=== PATIENT | female | born 1960 | race Caucasian/White ===

== ENCOUNTER 2018-05-13 09:32 | Emergency (ER) | payer BC ==
[2018-05-13 09:48] VITALS: BP 142/83
--- NOTE | 2018-05-13 10:25 | ED ---
Skin Complaint - HPI Summary HPI Summary: 58 YO wf p/w mild upper lip swelling, and reddish blotchy rash in her extremities, nothing new consumed or worn recently except starting ranitidine about 1 week ago when her PCP switched her from Protonix to ranitidine due to S/ E profile. Denies SOB or dizziness - History of Current Complaint Chief Complaint: UCSkin Time Seen by Provider: 05/13/18 09:38 Stated Complaint: RASH Hx Obtained From: Patient Onset/Duration: Started Days Ago Skin Exposure Onset/Duration: Days Ago Timing: Constant Onset Severity: Moderate Pain Intensity: 0 - Allergy/Home Medications Allergies/Adverse Reactions: Allergies Allergy/AdvReac Type Severity Reaction Status Date / Time meperidine Allergy Vomiting Verified 05/13/18 09:38 opium Allergy Vomiting Uncoded 05/13/18 09:38 opoids Allergy Vomiting Uncoded 04/09/16 12:24 Home Medications: Home Medications raNITIdine HCl [Ranitidine HCl] 150 mg PO BID 05/13/18 [History Confirmed ] PMH/Surg Hx/FS Hx/Imm Hx Endocrine/Hematology History: Denies: Hx Diabetes Cardiovascular History: Denies: Hx Hypertension, Other Cardiovascular Problems/Disorders Respiratory History: Reports: Hx Asthma Denies: Other Respiratory Problems/Disorders GI History: Reports: Hx Gastroesophageal Reflux Disease Denies: Other GI Disorders History: Reports: Hx Kidney Stones - CURRENTLY ON LEFT, Hx Renal Disease - stones,stents,urostomy tube removed Denies: Hx Dialysis Musculoskeletal History: Reports: Hx Arthritis - FEET Denies: Hx Osteoporosis Sensory History: Reports: Hx Contacts or Glasses - CONTACTS Denies: Hx Hearing Aid Opthamlomology History: Reports: Hx Contacts or Glasses - CONTACTS - Surgical History Surgery Procedure, Year, and Place: [place] [facility] [place]. 1990, [facility], [place]- previously documented - ? urostomy for a short time prior to lithotripsy. laser surgery right kidney to remove a stone and stents. Hx Anesthesia Reactions: No Infectious Disease History: No Infectious Disease History: Denies: Traveled Outside the [place] in Last 30 Days - Social History Alcohol Use: Rare Alcohol Amount: 6 PER YEAR Substance Use Type: Reports: None Smoking Status (MU): Never Smoked Tobacco Have You Smoked in the Last Year: No Review of Systems Constitutional: Negative Eyes: Negative ENT: Negative Cardiovascular: Negative Respiratory: Negative Gastrointestinal: Negative Genitourinary: Negative Musculoskeletal: Negative Skin: Other Positive: Rash Neurological: Negative Psychological: Normal All Other Systems Reviewed And Are Negative: Yes Physical Exam - Summary Physical Exam Summary: Vital Signs Reviewed: Yes Appearance: Positive: Well-Appearing Skin: Positive: Warm, diffuse patchy urticaria in flexor surfaces of extremities , B/L upper inner thighs, mild upper lip swelling Head/Face: Positive: Normal Head/Face Inspection Eyes: Positive: EOMI, [place] ENT: Positive: Hearing grossly normal, Pharynx normal, TMs normal Neck: Positive: Supple, No Lymphadenopathy Respiratory/Lung Sounds: Positive: Clear to Auscultation Cardiovascular: Positive: RRR, S1, S2 Abdomen Description: Positive: Nontender, Soft Bowel Sounds: Positive: Present Musculoskeletal: Positive: Normal Neurological: Positive: CN Intact II-III Psychiatric: Positive: Normal Triage Information Reviewed: Yes Vital Signs On Initial Exam: Initial Vitals Temp Pulse Resp BP Pulse Ox 37.1 C 77 18 142/83 100 05/13/18 09:41 05/13/18 09:41 05/13/18 09:41 05/13/18 09:41 05/13/18 09:41 Diagnostics - Vital Signs Vital Signs Temp Pulse Resp BP Pulse Ox 05/13/18 09:41 37.1 C 77 18 142/83 100 - Laboratory Lab Statement: Any lab studies that have been ordered have been reviewed, and results considered in the medical decision making process. Course/Dx - Course Assessment/Plan: urticaria- Discontinue Ranitidine, take PO Prednisone 10mg x 5days and Benedryl PRN - Diagnoses Provider Diagnoses: Urticaria due to drug allergy Discharge - Sign-Out/Discharge Documenting (check all that apply): Patient Departure All imaging exams completed and their final reports reviewed: No Studies - Discharge Plan Condition: Stable Disposition: HOME Prescriptions: predniSONE TAB* [Deltasone 10 MG TAB*] 10 mg PO DAILY 5 Days #5 tab Patient Education Materials: Urticaria (ED) Referrals: Earline Bermeo MD [Primary Care Provider] - Additional Instructions: STOP RANITIDINE, TAKE MEDICATION DIRECTED AND FOLLOW UP WITH PCP WITHIN 2-3 DAYS - Billing Disposition and Condition Condition: STABLE Disposition: Home
== END 2018-05-13 10:31 | disposition home or self-care (01) ==
LOC: UCEAST 09:32
DX: L50.0 Allergic urticaria (principal); T47.0X5A Adverse effect of histamine H2-receptor blockers, initial encounter; M13.879 Other specified arthritis, unspecified ankle and foot; Z88.5 Allergy status to narcotic agent; Y92.9 Unspecified place or not applicable
CPT/HCPCS: 99212; G0463